=== PATIENT | female | born 1950 | race Caucasian/White ===

== ENCOUNTER 2020-08-26 16:57 | Outpatient (CLI) | payer MEDICARE ==
[2020-08-26 17:57] LABS: ALBUMIN 3.8 g/dL (3.4-5.0); ANION GAP 8 mmol/L (5-15); CHLORIDE 106 mmol/L (98-107)
[2020-08-26 18:00] LABS: ALANINE AMINOTRANSFERASE 58 U/L (12-78); ALKALINE PHOSPHATASE 85 U/L (45-117); BILIRUBIN,TOTAL 0.5 mg/dL (0.2-1.0); CHOL/HDL RATIO 6.2; CHOLESTEROL, TOTAL 216 mg/dL (140-239); CREATININE 0.66 mg/dL (0.55-1.02); HDL CHOL % 16 % (28-40); HDL CHOLESTEROL (DIRECT) 35 mg/dL (40-60); LDL CHOLESTEROL,CALCULATED 112 mg/dL (54-169); LDL/HDL RATIO 3.2 (0.5-3.0); TOTAL PROTEIN 8.4 g/dL (6.4-8.2); TRIGLYCERIDES 345 mg/dL (50-200); VLDL CHOLESTEROL 69 mg/dL (0-25)
== END 2020-08-26 23:59 | disposition home or self-care (01) ==
LOC: LAB 16:57
PROVIDERS: ATTEND Family Medicine
DX: I10 Essential (primary) hypertension (principal); E11.9 Type 2 diabetes mellitus without complications; E55.9 Vitamin D deficiency, unspecified; E78.5 Hyperlipidemia, unspecified
CPT/HCPCS: 36415; 80053; 80061; 82306; 83036

== ENCOUNTER → 2020-09-27 | Outpatient (CLI) | payer MEDICARE ==
[2020-09-27 16:54] LABS: ANION GAP 9 mmol/L (5-15); CALCIUM 9.6 mg/dL (8.5-10.1); CHLORIDE 105 mmol/L (98-107); CREATININE 0.64 mg/dL (0.55-1.02)
== END | disposition home or self-care (01) ==
LOC: LAB 16:04
PROVIDERS: ATTEND Anesthesiology
DX: Z01.812 Encounter for preprocedural laboratory examination (principal); I11.9 Hypertensive heart disease without heart failure; E10.9 Type 1 diabetes mellitus without complications
CPT/HCPCS: 36415; 80048